=== PATIENT | female | born 1940 | race African-American/Black ===

== ENCOUNTER 2023-12-20 19:55 | Emergency (ER) | payer MEDICARE, MEDICAID ==
[~2023-12-20] VITALS: Ht 162.6 cm; Wt 87.0 kg
[2023-12-20 20:04] VITALS: O2SAT 99
[2023-12-21 01:47] VITALS: BP 137/61; PULSE 62; RESP 13; TEMP 98.1
== END 2023-12-21 01:52 | disposition home or self-care (01) ==
LOC: ER 19:55
DX: I10 Essential (primary) hypertension (principal); Z90.710 Acquired absence of both cervix and uterus; Z88.0 Allergy status to penicillin
CPT/HCPCS: 99285